=== PATIENT | female | born 1980 | race African-American/Black ===

== ENCOUNTER 2019-01-14 08:53 | Day surgery (SDC) | payer OTHER ==
[2019-01-10 10:12] VITALS: BMI 30.1
[2019-01-14] MEDS ORDERED: oxyCODONE HCL 10 MG SUSTAINED ACTING TABLET PO ONE (10:20)
[2019-01-14] MEDS ORDERED: DEXAMETHASONE SOD PHOSPHATE/PF 10 MG/ML SDV ONE (11:39)
[2019-01-14] MEDS ORDERED: MIDAZOLAM HCL 2 MG/2 ML SINGLE DOSE VIAL ONE (11:39)
[2019-01-14] MEDS ORDERED: BUPIVACAINE HCL/PF 0.5% (5 MG/ML) 30 ML VIAL IJ ONE (11:39)
--- NOTE | 2019-01-14 12:13 | HP ---
History & Physical Update - History History: No Change - Physical Physical: No Change - Assessment Assessment: No Change - Plan Plan: No Change
[2019-01-14] MEDS ORDERED: LIDOCAINE 1%/EPI 1:100000 (20 ML MULTI DOSE VIAL) ONE (12:28)
[2019-01-14] MEDS ORDERED: methylPREDNISolone ACET (DEPO) 40 MG/1 ML VIAL ONE (12:28)
[2019-01-14] MEDS ORDERED: GUM MASTIC/STORAX/MSAL/ALCOHOL 1 DRP DROPSBTL MC ONE (12:29)
[2019-01-14] MEDS ORDERED: THROMBIN (RECOMBINANT) 5,000 UNIT VIAL TP ONE (12:29)
[2019-01-14] MEDS ORDERED: ceFAZolin SODIUM 1 GM VIAL ONE (12:34)
[2019-01-14] MEDS ORDERED: DEXAMETHASONE SOD PHOSPHATE 4 MG/1 ML VIAL ONE (12:34)
[2019-01-14] MEDS ORDERED: ONDANSETRON 4 MG/2 ML VIAL ONE (12:34)
[2019-01-14] MEDS ORDERED: ePHEDrine SULFATE 50 MG/1 ML AMPULE ONE (13:18)
[2019-01-14] MEDS ORDERED: oxyCODONE HCL 5 MG TABLET PO PRN (13:19)
[2019-01-14] MEDS ORDERED: ONDANSETRON 4 MG/2 ML VIAL IVPUSH PRN (13:19)
[2019-01-14] MEDS ORDERED: LACTATED RINGERS SOLUTION 1,000 ML IV SCH (13:30)
--- NOTE | 2019-01-14 14:02 | OP ---
Operative Note - Note: Operative Date: 01/14/19 Pre-Operative Diagnosis: lumbar stenosis, herniated disc L5-S1 Operation: laminectomy of L5-S1 with microdisectomy Surgeon: Shiva Raygoza Top Case Assembler: Pavithra English Anesthesiologist/PLUSH DRESSER: Shereen Mendez Anesthesia: Spinal Estimated Blood Loss (mls): 20 Fluid Volume Replaced (mls): 1,600 Operative Report Dictated: Yes
--- NOTE | 2019-01-14 14:04 | SURG ---
Surgery General Office Associate Note General Office Associate: Pavithra English PA-C Date of Service: 01/14/19 Diagnosis: lumbar stenosis, herniated disc of L5-S1 Procedure: laminectomy of l5-S1 with microdisectomy I was present for the entirety of the operative procedure. For further detail, please refer to operative report. Visit type - Case Type Case Type: Scheduled - Emergency Emergency Visit: No - New patient This patient is new to me today: Yes Date on this admission: 01/14/19
--- NOTE | 2019-01-14 16:24 | OP ---
DATE OF OPERATION: 01/14/2019 PREOPERATIVE DIAGNOSIS: Spinal stenosis at L5-S1. POSTOPERATIVE DIAGNOSIS: Spinal stenosis at L5-S1. PROCEDURE PERFORMED: Laminectomy, L5-S1. SURGEON: Shiva Raygoza MD AGRICULTURAL RESEARCH TECHNICIAN: VINCE Talavera ESTIMATED BLOOD LOSS: 50 mL. IV FLUIDS: Per Anesthesia. ANESTHESIA: Spinal/TLIP. COMPLICATIONS: There were none. DISPOSITION: Patient brought to the PACU in stable condition. INDICATION FOR SURGERY: The patient is a 38-year-old female who has been suffering from pain from her back down her leg. X-rays and MRI were completed, which noted that she has spinal stenosis at L5-S1. She had gone through an exhaustive course of treatment for this, which included medications, physical therapy as well as injections. Unfortunately, her pain continued to persist despite all this. At this point, risks, benefits, and alternatives were discussed and the patient consented to surgery. OPERATIVE NOTE: Patient was brought to the operating room by the anesthesia staff. After appropriate patient identification was performed, spinal anesthesia was given. A TLIP block was also given. The patient was able to position himself prone onto the OR table, with all areas of bony prominences well padded at this time. Two needles were placed into his back to nahum off the L5-S1 segments. X-ray was taken to confirm this was correct. The needle was removed and 10 mL of lidocaine with epinephrine was injected into his back. At this time his back was prepped and draped in a sterile manner. At this point, time-out was completed. An incision was made from the top of L5 down to bottom of S1. Dissection was carried down to the fascia. The fascia was then split open at this time and appropriate retractors were then placed in. A spinal needle was placed onto the L5 lamina to nahum the L5-S1 level. An x-ray was taken to confirm this was correct. The needle was removed, and interspinous ligament at L5-S1 was removed. The microscope was brought in. Portions of the L5-S1 spinous process were removed. Portions of the L5-S1 lamina were removed. The flavum was removed. A complete decompression was performed such that by the end of the procedure the S1 nerve root appeared to be well decompressed. The thecal sac was mobilized medially. A disk herniation was noted. It was removed at this time. All bleeding was well controlled at this time. Steroid was placed over the nerve root, FloSeal was placed over that. The fascia was closed with a number 1 Vicryl suture. The subcutaneous tissues were closed with 2-0 Vicryl suture. Skin was closed with 3-0 Monocryl suture. Dermabond was applied, Steri-Strips were applied, sterile dressing applied. The patient was placed supine on the OR bed and brought to the PACU in stable condition. Luh ANDERSON/[id number]
[2019-01-14 17:37] VITALS: BP 106/54; PULSE 53; TEMP 97.8
== END 2019-01-14 17:36 | disposition home or self-care (01) ==
LOC: FASU 08:53
PROVIDERS: ATTEND Orthopaedic Surgery Orthopaedic Surgery of the Spine
PROC: 01NB0ZZ Release Lumbar Nerve, Open Approach (ICD-10-PCS; principal; 2019-01-14 12:57)
DX: M48.07 Spinal stenosis, lumbosacral region (principal)
CPT/HCPCS: 72100-TC-FY; 84703; 94760